=== PATIENT | male | born 1985 | race Caucasian/White ===

== ENCOUNTER 2017-06-13 00:23 | Emergency (ER) | payer BC ==
[~2017-06-13] VITALS: Ht 172.7 cm; Wt 96.4 kg
[~2017-06-13 00:23] MED LIST: PERCOCET 5/31 TABLET PO; SILVADENE20 GM TP
[2017-06-13 00:48] LABS: HEMATOCRIT 38.6 % (38.0-50.0); MCH 29.9 PG (29.0-34.0); MCHC 34.2 G/DL (30.0-36.0); MCV 87.5 FL (86-99); MEAN PLAT.VOLUME 11.5 uM^3 (9.0-12.4); PLATELET COUNT 140 K/uL (156-360); RBC DIS.WIDTH-CV 12.1 % (11.8-14.6); RBC DIS.WIDTH-SD 38.5 % (39-53); RED BLOOD COUNT 4.41 M/uL (4.00-5.50); WHITE BLOOD COUNT 5.8 K/uL (4.1-10.2)
[2017-06-13 01:00] LABS: CHLORIDE 106 mEq/L (99-109); POTASSIUM 3.7 mEq/L (3.7-5.4); SODIUM 139 mEq/L (136-147)
[2017-06-13 01:02] LABS: GLUCOSE 123 mg/dL (70-99)
[2017-06-13 01:03] LABS: ANION GAP 10 MEQ/L (2-14)
[2017-06-13 01:06] LABS: GFR ESTIMATE (CALCULATED) > 59 mL/min/
[2017-06-13 01:07] LABS: UREA NITROGEN (BUN) 10 mg/dL (9-23)
[2017-06-13 03:18] LABS: ADD MIUA? YES; BILIRUBIN NEGATIVE; BLOOD LARGE; COLOR YELLOW ((YELLOW)); GLUCOSE (STRIP) NEGATIVE; KETONES NEGATIVE; LEUKOCYTES NEGATIVE; NITRITE NEGATIVE; PROTEIN (STRIP) 100; SPECIFIC GRAVITY 1.019 (1.000-1.030); UROBILINOGEN 0.2 MG/DL (0.2-1.0)
[2017-06-13 03:42] LABS: RED BLOOD CELLS TNTC /HPF (0-5)
[2017-06-13 03:43] LABS: EPITHELIAL CELLS RARE /HPF; WHITE BLOOD CELLS 0-5 /HPF (0-5)
[2017-06-13 03:47] LABS: BACTERIA 3+ /HPF; CALCIUM OXALATE CRYSTALS RARE /HPF; CASTS NONE SEEN /LPF; CRYSTALS PRESENT; MUCUS 1+ /LPF; UCUL ADDED? NO
[2017-06-13] MEDS ORDERED: ZOFRAN8 MG PO (04:01)
[2017-06-13] MEDS ORDERED: CIPRO500 MG PO (04:01)
[2017-06-13] MEDS ORDERED: NORCO 5/3251 TABLET PO (04:01)
[2017-06-13 04:34] VITALS: BP 122/84
== END 2017-06-13 04:34 | disposition home or self-care (01) ==
LOC: EME 00:23
DX: N20.2 Calculus of kidney with calculus of ureter (principal); N39.0 Urinary tract infection, site not specified; Z87.891 Personal history of nicotine dependence
CPT/HCPCS: 74176; 80048; 81003; 85027; 99281; 99284

== ENCOUNTER → 2017-09-22 | Outpatient (CLI) | payer BC ==
[~2017-09-22] VITALS: Ht 170.2 cm; Wt 94.8 kg
[~2017-09-22] MED LIST changes: +CIPRO500 MG PO; +NORCO 5/3251 TABLET PO; +ZOFRAN8 MG PO
== END | disposition home or self-care (01) ==
LOC: AMB 08:22
PROC: 0DBE8ZX Excision of Large Intestine, Via Natural or Artificial Opening Endoscopic, Diagnostic (ICD-10-PCS; principal; 2017-09-22)
DX: R19.7 Diarrhea, unspecified (principal); K64.4 Residual hemorrhoidal skin tags; E66.9 Obesity, unspecified; Z68.32 Body mass index [BMI] 32.0-32.9, adult; Z83.79 Family history of other diseases of the digestive system; F17.200 Nicotine dependence, unspecified, uncomplicated
CPT/HCPCS: 88305; J2250; J3010